=== PATIENT | male | born 1955 | race Caucasian/White ===

== ENCOUNTER 2024-08-05 10:53 | Inpatient (IN) | payer MEDICARE ==
[2024-08-05] MEDS ORDERED: Ipratropium/Albuterol 3 ML NEB ONE ×2 (11:14→11:43)
[2024-08-05] MEDS ORDERED: Magnesium 2 GM/50 ML BAG (IN WATER) ONE (11:28)
[2024-08-05] MEDS ORDERED: methylPREDNISolone Sod Succ/PF 125 MG/2 ML VIAL ONE (11:28)
[2024-08-05 11:33] LABS: #Basophils 0.06 10x3/uL (0.0-0.2); %Basophils 0.4 % (0.0-1.0); %Eosinophils 0.3 % (0.0-10.0); %Lymphocytes 12.4 % (21.0-51.0); %Monocytes 8.6 % (0.0-10.0); %Neutrophils 77.7 % (42.0-75.0); Hemoglobin 17.5 g/dL (14.0-18.0); Mean Corpuscular Hemoglobin 27.1 pg (27.0-31.0); Mean Corpuscular Volume 82.2 fL (78.0-98.0); Mean Platelet Volume 9.7 fL (7.4-10.4); Platelet Count 245 10x3/uL (130-400); RBC Distribution Width 19.4 % (11.5-14.5); Red Blood Cell (RBC) Count 6.45 mill/uL (4.70-6.10)
[2024-08-05 11:49] LABS: ALT (SGPT) 32 U/L (8-55); AST (SGOT) 25 U/L (5-34); Albumin 3.7 g/dL (3.4-4.8); Alkaline Phosphatase 80 U/L (40-110); Anion Gap 15 mmol/L (10-20); BUN (Urea Nitrogen) 29 mg/dL (8.4-25.7); Bilirubin, Total 0.9 mg/dL (0.2-1.2); Calc. Creatinine Clearance 0 mL/min (70-130); Calcium 10.7 mg/dL (7.8-10.44); Carbon Dioxide 27 mmol/L (23-31); Chloride 103 mmol/L (98-107); Estimated GFR 59; Globulin 3.8 g/dL (2.4-3.5); Glucose 227 mg/dL (80-115); Lipase 32 U/L (8-78); Magnesium 2.2 mg/dL (1.6-2.6); Potassium 3.9 mmol/L (3.5-5.1); Protein, Total 7.5 g/dL (5.8-8.1); Sodium 141 mmol/L (136-145)
[2024-08-05 11:57] LABS: Troponin I 0.021 ng/mL (< 0.028)
[2024-08-05 11:58] LABS: PTT 37.5 sec (22.9-36.1)
[2024-08-05] MEDS ORDERED: Sodium Chloride 0.9% 100 ML ONE (12:05)
[2024-08-05] MEDS ORDERED: cefTRIAXone (ROCEPHIN) 2 GM VIAL ONE (12:05)
[2024-08-05 12:37] LABS: INR-International Normal Ratio 3.1
[2024-08-05] MEDS ORDERED: Azithromycin 500 MG VIAL ONE (12:39)
[2024-08-05] MEDS ORDERED: Iopamidol-370 76% 500 ML MDV (1 ML CHARGE) ONE (12:55)
[2024-08-05] MEDS ORDERED: Acetaminophen 325 MG TAB PO PRN (15:46)
[2024-08-05] MEDS ORDERED: Dextrose 5% in Water 1,000 ML IV PRN (16:22)
[2024-08-05] MEDS ORDERED: Glucagon 1 MG/ML KIT IM PRN (16:22)
[2024-08-05] MEDS ORDERED: Insulin Regular, Human 100 UNIT/ML 10 ML VIAL SC PRN (16:22)
[2024-08-05] MEDS ORDERED: Dextrose 50% Abboject 50 ML SYRINGE SLOW IVP PRN (16:22)
[2024-08-05] MEDS ORDERED: Ipratropium/Albuterol 3 ML NEB NEB PRN (17:00)
[2024-08-05] MEDS: guaiFENesin ER 600 MG TAB PO SCH (22:17)
[2024-08-05] MEDS: Ipratropium/Albuterol 3 ML NEB NEB SCH (22:45)
[2024-08-06] MEDS: Insulin Regular, Human 100 UNIT/ML 10 ML VIAL SC PRN (00:02)
[2024-08-06 03:50] VITALS: BMI 36.9
[2024-08-06 06:07] LABS: #Basophils 0.03 10x3/uL (0.0-0.2); #Eosinophils Less than 0.03 10x3/uL (0.0-0.7); %Basophils 0.2 % (0.0-1.0); %Lymphocytes 7.3 % (21.0-51.0); %Neutrophils 86.8 % (42.0-75.0); Hematocrit 49.7 % (42.0-52.0); Hemoglobin 16.2 g/dL (14.0-18.0); Mean Corpuscular HGB CONC 32.6 g/dL (32.0-36.0); Mean Corpuscular Hemoglobin 26.7 pg (27.0-31.0); Mean Corpuscular Volume 81.9 fL (78.0-98.0); Mean Platelet Volume 10.2 fL (7.4-10.4); Platelet Count 245 10x3/uL (130-400); RBC Distribution Width 18.7 % (11.5-14.5); Red Blood Cell (RBC) Count 6.07 mill/uL (4.70-6.10)
[2024-08-06 06:25] LABS: Anion Gap 13 mmol/L (10-20); BUN (Urea Nitrogen) 28 mg/dL (8.4-25.7); Calc. Creatinine Clearance 92 mL/min (70-130); Calcium 9.5 mg/dL (7.8-10.44); Carbon Dioxide 27 mmol/L (23-31); Chloride 102 mmol/L (98-107); Estimated GFR 67; Glucose 141 mg/dL (80-115); Sodium 138 mmol/L (136-145)
[2024-08-06] MEDS: predniSONE 20 MG TAB PO SCH (09:50)
[2024-08-06] MEDS: Enoxaparin 40 MG (0.4 mL) SYRINGE SC SCH (09:50)
[2024-08-06] MEDS: FLU (Fluad Triv) TS24-25 (65UP)/MF59C/PF 45 MCG/0.5 ML Syringe IM ONE (10:21)
[2024-08-06] MEDS: cefTRIAXone\\ROCEPHIN 2 GM in Sodium Chloride 0.9% 100 ML IVPB SCH (11:33)
[2024-08-06] MEDS ORDERED: cefTRIAXone\\ROCEPHIN 1 GM in Sodium Chloride 0.9% 100 ML IVPB SCH (12:00)
[2024-08-06] MEDS ORDERED: Furosemide 20 MG TAB PO PRN (13:20)
[2024-08-06] MEDS ORDERED: Azithromycin 500 MG in Sodium Chloride 0.9% 250 ML 250 ML IVPB SCH (14:00)
[2024-08-06] MEDS: Azithromycin 500 MG in Sodium Chloride 0.9% 250 ML 250 ML IVPB SCH (14:05)
[2024-08-06 15:42] LABS: INR-International Normal Ratio 3.2; Prothrombin Time 33.2 sec (12.0-14.7)
[2024-08-06] MEDS: Warfarin Sodium 5 MG TAB PO SCH (16:40)
[2024-08-06] MEDS: Ipratropium/Albuterol 3 ML NEB NEB SCH (18:51)
[2024-08-06] MEDS: Carvedilol 6.25 MG TAB PO SCH (20:46)
[2024-08-06] MEDS: Sotalol HCl 80 MG TAB PO SCH (20:46)
[2024-08-06] MEDS: Atorvastatin Calcium 40 MG TAB PO SCH (20:46)
[2024-08-07 05:58] LABS: #Basophils 0.03 10x3/uL (0.0-0.2); #Eosinophils Less than 0.03 10x3/uL (0.0-0.7); %Basophils 0.2 % (0.0-1.0); %Eosinophils 0.1 % (0.0-10.0); %Lymphocytes 9.9 % (21.0-51.0); %Monocytes 6.9 % (0.0-10.0); %Neutrophils 82.2 % (42.0-75.0); Hematocrit 48.2 % (42.0-52.0); Mean Corpuscular HGB CONC 33.2 g/dL (32.0-36.0); Mean Corpuscular Hemoglobin 27.1 pg (27.0-31.0); Mean Corpuscular Volume 81.7 fL (78.0-98.0); Mean Platelet Volume 10.2 fL (7.4-10.4); Platelet Count 224 10x3/uL (130-400); RBC Distribution Width 18.6 % (11.5-14.5)
[2024-08-07] MEDS: Levothyroxine Sodium 25 MCG TAB PO SCH (05:59)
[2024-08-07 06:04] LABS: INR-International Normal Ratio 4.2; Prothrombin Time 41.2 sec (12.0-14.7)
[2024-08-07 07:04] LABS: Anion Gap 12 mmol/L (10-20); BUN (Urea Nitrogen) 26 mg/dL (8.4-25.7); Calc. Creatinine Clearance 98 mL/min (70-130); Calcium 9.9 mg/dL (7.8-10.44); Carbon Dioxide 27 mmol/L (23-31); Chloride 105 mmol/L (98-107); Estimated GFR 72; Glucose 124 mg/dL (80-115); Potassium 3.5 mmol/L (3.5-5.1); Sodium 140 mmol/L (136-145)
[2024-08-07] MEDS: Empagliflozin 25 MG TAB PO SCH (08:46)
[2024-08-07] MEDS: Losartan 25 MG TAB PO SCH (08:46)
[2024-08-07 11:35] VITALS: BP 143/98; TEMP 98.1
[2024-08-07] MEDS ORDERED: Warfarin Sodium 5 MG TAB PO SCH (17:00)
[2024-08-09] MEDS ORDERED: Warfarin Sodium 5 MG TAB PO SCH (17:00)
[2024-08-13] MEDS ORDERED: Warfarin Sodium 5 MG TAB PO SCH (17:00)
== END 2024-08-07 14:20 | disposition home or self-care (01) | DRG 193 ==
LOC: ERS 10:53 → ERHOLD 15:02 → T4-B 20:24
PROVIDERS: ADMIT Internal Medicine; ATTEND Internal Medicine
DX: J12.9 Viral pneumonia, unspecified (principal); J96.01 Acute respiratory failure with hypoxia; J44.1 Chronic obstructive pulmonary disease with (acute) exacerbation; J44.0 Chronic obstructive pulmonary disease with (acute) lower respiratory infection; I10 Essential (primary) hypertension; I48.91 Unspecified atrial fibrillation; E11.9 Type 2 diabetes mellitus without complications; Z95.1 Presence of aortocoronary bypass graft; Z95.2 Presence of prosthetic heart valve; Z98.890 Other specified postprocedural states; Z79.899 Other long term (current) drug therapy; R00.0 Tachycardia, unspecified
CPT/HCPCS: 36415; 36416; 71045; 71275; 80048; 80053; 83605; 83690; 83735; 83880; 84145; 84443; 84484; 85025; 85610; 85730; 87040; 87428; 87633; 93005; 93306; 94640; 94760; 96365; 96366; 96367; 96375; J0456; J0696; J1650; J1815; J2919; J3475; J7050; J7512; J7620; Q9967

== ENCOUNTER 2025-04-10 09:35 | Outpatient (CLI) | payer MEDICARE | END 2025-04-10 09:36 | disposition home or self-care (01) | LOC: RAD 09:35 | PROVIDERS: ATTEND Internal Medicine Critical Care Medicine | DX: R06.00 Dyspnea, unspecified (principal); R06.9 Unspecified abnormalities of breathing; I51.7 Cardiomegaly | CPT/HCPCS: 71046 ==